=== PATIENT | male | born 1970 | race Caucasian/White ===

== ENCOUNTER 2017-08-26 23:13 | Emergency (ER) | payer OTHER ==
[~2017-08-26 23:13] MED LIST: NAPROSYN500 M1 PO; NORCO 5-325 TA1 EACH PO
--- NOTE | 2017-08-26 23:30 | ED GI/GU/ABDOMINAL COMPLAINT ---
History of Present Illness General Chief Complaint: Nausea, Vomiting, Diarrhea Stated Complaint: NVD Source: patient Exam Limitations: no limitations Vital Signs & Intake/Output Vital Signs & Intake/Output Vital Signs Date Time Temp Pulse Resp B/P B/P Pulse O2 O2 Flow FiO2 Mean Ox Delivery Rate 08/27 0103 97.3 83 20 155/63 96 08/26 2330 98.2 71 22 145/82 98 ED Intake and Output 08/27 0000 08/26 1200 Intake Total Output Total Balance Patient 300 lb Weight Allergies Coded Allergies: No Known Drug Allergies (12/02/15) Reconcile Medications Omeprazole Magnesium (Prilosec Otc) 20 MG TABLET.DR 1 TAB PO DAILY stomach burning Ondansetron (Zofran Odt) 4 MG TAB.RAPDIS 1 TAB SL TID PRN nausea Triage Note: PER PT VOMITING AND NAUSEA AND BROWN X 2 HRS UNSURE IF FEVER BUT FEEL LIKE IT Triage Nurses Notes Reviewed? yes Onset: Gradual Duration: day(s): Timing: recent history Quality/Severity: cramping, vomiting Location: epigastric, generalized abdomen, right lower quadrant Radiation: no radiation Activities at Onset: none Prior Abdominal Problems: none Modifying Factors: Worsens With: vomiting. Associated Symptoms: abdominal pain, nausea/vomiting HPI: 46 yo gentleman in prior good health presents with abdominal pain and nausea that began a few hours ago. He also notes a diffuse headache, dizziness, "like I'm going to pass out." He has no diarrhea, chest pain, shortness of breath. He does not recall ingesting any suspicious foods. He is otherwise well. Past History Medical History Any Pertinent Medical History? see below for history Musculoskeletal: FLESH EATING BACTERIA Psychiatric: anxiety Surgical History Surgical History: right leg Psychosocial History What is your primary language Montenegrin Family History Hx Contributory? No Review of Systems Review of Systems Constitutional: Reports: no symptoms. EENTM: Reports: no symptoms. Respiratory: Reports: no symptoms. Cardiovascular: Reports: no symptoms. GI: Reports: no symptoms. Genitourinary: Reports: no symptoms. Musculoskeletal: Reports: no symptoms. Skin: Reports: no symptoms. Neurological/Psychological: Reports: no symptoms. Hematologic/Endocrine: Reports: no symptoms. Immunologic/Allergic: Reports: no symptoms. All Other Systems: Reviewed and Negative Physical Exam Physical Exam General Appearance: well developed/nourished, moderate distress Head: atraumatic, normal appearance Eyes: Bilateral: normal appearance. Ears, Nose, Throat, Mouth: hearing grossly normal, dry mucosa Neck: normal inspection, supple, full range of motion, normal alignment Respiratory: normal breath sounds, chest non-tender, no respiratory distress, quiet respiration, lungs clear Cardiovascular: regular rate/rhythm Gastrointestinal: normal bowel sounds, soft, tenderness in mid epigastrum and luq, rlq, no interiano's sign, no rebound. Back: normal inspection, normal range of motion Extremities: normal range of motion Neurologic/Psych: no motor/sensory deficits, awake, alert, oriented x 3 Skin: intact, normal color, warm/dry Core Measures ACS in differential dx? No Sepsis Present: No Sepsis Focused Exam Completed? No Progress Differential Diagnosis: appendicitis, bowel obstruction, cholecystitis, diverticulitis, gastritis, hepatitis, pancreatitis Plan of Care: Orders Procedure Date/time Status ETHANOL 08/26 234 Complete LIPASE 08/26 2318 Complete HEPATIC FUNCTION PANEL 08/26 2318 Complete CBC WITHOUT DIFFERENTIAL 08/26 2318 Complete BASIC METABOLIC PANEL 08/26 2318 Complete AMYLASE 08/26 2318 Complete EKG 08/26 2318 Active Laboratory Tests 08/26/17 2345: Anion Gap 13, Estimated GFR > 60, BUN/Creatinine Ratio 17.3, Glucose 125 H, Calcium 9.4, Total Bilirubin 0.5, Direct Bilirubin 0.4, AST 27, ALT 44, Alkaline Phosphatase 91, Total Protein 7.1, Albumin 4.4, Amylase 53, Lipase 82, CBC w Diff NO MAN DIFF REQ, RBC 5.48, MCV 86.9, MCH 30.3, MCHC 34.8, RDW 13.0, MPV 9.4 , Gran % 61.2, Lymphocytes % 27.9, Monocytes % 8.0, Eosinophils % 2.4, Basophils % 0.5, Absolute Granulocytes 5.8, Absolute Lymphocytes 2.7, Absolute Monocytes 0.8 H, Absolute Eosinophils 0.2, Absolute Basophils 0, Serum Alcohol < 10.0 08/26/17 2344: Serum Alcohol Cancelled Diagnostic Imaging: Viewed by Me: CT Scan. Discussed w/RAD: CT Scan. Radiology Impression: PATIENT: ISREAL ARAUJO PRESENT AGE: 46 PATIENT ACCOUNT NO: [id number] : 69 LOCATION: [facility] ORDERING PHYSICIAN: Onur Diehl MD SERVICE DATE: 08/26/172093 EXAM TYPE: CAT - CT ABD & PELVIS W/O IV CONTRAS EXAMINATION: CT ABDOMEN AND PELVIS WITHOUT CONTRAST CLINICAL INFORMATION: Abdominal pain, intractable vomiting COMPARISON: None TECHNIQUE: Multidetector volumetric imaging was performed from the superior aspect of the liver through the pubic symphysis. Sagittal and coronal reformatted images were obtained on the technologist's workstation. DLP: 1382.84 mGy-cm FINDINGS: LUNG BASES: The visualized lung bases are unremarkable. LIVER, GALLBLADDER, AND BILIARY TREE: The liver is normal in size, shape, and attenuation. No focal hepatic lesion or biliary ductal dilatation is present. The gallbladder is unremarkable with no evidence of radiopaque gallstones, gallbladder wall thickening, or obvious pericholecystic inflammatory changes. PANCREAS: Unremarkable. SPLEEN: Unremarkable. ADRENAL GLANDS: Unremarkable. KIDNEYS AND URETERS: The kidneys are normal in size, shape , and attenuation. There is a right upper pole renal cyst which is suspected to be septated; in the axial plane this measures up to approximately 6.3 x 4.0 cm. No hydronephrosis, hydroureter, or calculi seen. No perinephric stranding. BLADDER: Unremarkable. GASTROINTESTINAL TRACT: The small and large bowel are unremarkable. The appendix is unremarkable. No free fluid or free air is seen. ABDOMINAL WALL: No significant hernia is appreciated. LYMPH NODES: Normal. VASCULAR: Unremarkable. PELVIC VISCERA: Unremarkable. OSSEOUS STRUCTURES: Endplate osteophytes are noted in the lower thoracic spine. There is partial visualization of suspected heterotopic ossification along the musculature of the lateral upper right thigh, which could reflect sequelae of old injury. IMPRESSION: No acute findings identified in the abdomen/pelvis. DICTATED BY: Baljit Lozano MD DATE/TIME DICTATED:08/27/1715 INSULATION [employer]OL[employer] OPERATOR:RISHABH DATE/TIME TRANSCRIBED:08/27/1715 CONFIDENTIAL, DO NOT COPY WITHOUT APPROPRIATE AUTHORIZATION. <Electronically signed in Other Vendor System> SIGNED BY: Baljit Lozano MD 08/27/1725 CXR Impression: PATIENT: ISREAL ARAUJO PRESENT AGE: 46 PATIENT ACCOUNT NO: [id number] : 69 LOCATION: [facility] ORDERING PHYSICIAN: Onur Diehl MD SERVICE DATE: 08/26/179533 EXAM TYPE: CAT - CT HEAD WO IV CONTRAST EXAMINATION: CT HEAD WITHOUT CONTRAST CLINICAL INFORMATION: Headache COMPARISON: None TECHNIQUE: Contiguous axial imaging was performed from the skull base to vertex without intravenous administration of contrast. DLP: 690.83 mGy-cm FINDINGS: There is no evidence of acute intracranial hemorrhage or territorial infarction. No abnormal mass effect or midline shift is seen. Field to white matter differentiation is well preserved. No extra-axial fluid collections are identified. The ventricles are normal in size. There is no abnormal attenuation within the brain parenchyma. The osseous structures and soft tissues are normal. There is minimal mucosal thickening of the ethmoid air cells and right maxillary sinus. IMPRESSION: No acute intracranial findings. DICTATED BY: Baljit Lozano MD DATE/TIME DICTATED:13 INSULATION C[employer] OPERATOR:RISHABH DATE/TIME TRANSCRIBED:08/27/1713 CONFIDENTIAL, DO NOT COPY WITHOUT APPROPRIATE AUTHORIZATION. <Electronically signed in Other Vendor System> SIGNED BY: Baljit Lozano MD 08/27/1718 Initial ED EKG: normal axis, normal intervals, normal p-waves, normal QRS complex, normal sinus rhythm Departure Departure Disposition: HOME OR SELF CARE Condition: Stable Clinical Impression Primary Impression: Abdominal pain Secondary Impressions: Headache Referrals: Shari PEACE,Pamela Tolentino (PCP/Family) Departure Forms: Customer Survey General Discharge Information Prescriptions: Current Visit Scripts Ondansetron (Zofran Odt) 1 TAB SL TID PRN nausea #10 TAB Omeprazole Magnesium (Prilosec Otc) 1 TAB PO DAILY #30 TAB Comments 08/27/17, 0:55am... pt feeling better after supportive medications. pt feels comfortable going home. labs/ct scan/ekg benign.
[2017-08-27 00:12] LABS: ABSOLUTE BASOPHIL COUNT 0 /CUMM (0.0-0.2); ABSOLUTE EOSINOPHIL COUNT 0.2 /CUMM (0.0-0.7); ABSOLUTE GRANULOCYTE CT 5.8 /CUMM (1.4-6.5); ABSOLUTE LYMPH COUNT 2.7 /CUMM (1.2-3.4); ABSOLUTE MONOCYTE COUNT 0.8 /CUMM (0.10-0.60); BASOPHIL % 0.5 % (0.0-2.0); EOSINOPHIL % 2.4 % (0-5); GRANULOCYTE % 61.2 % (42.2-75.2); HEMATOCRIT 47.6 % (42-52); MEAN CORPUSCULAR HGB 30.3 PG (27.0-31.0); MEAN CORPUSCULAR HGB CONC 34.8 G/DL (33.0-37.0); MEAN CORPUSCULAR VOLUME 86.9 FL (80.0-94.0); MEAN PLATELET VOLUME 9.4 FL (7.4-10.4); PLATELET COUNT 296 /CUMM (130-400); RED BLOOD CELL CT 5.48 /CUMM (4.70-6.10); WHITE BLOOD CELL COUNT 9.5 /CUMM (4.8-10.8)
--- NOTE | 2017-08-27 00:19 | CT SCAN REPORT ---
EXAMINATION: CT HEAD WITHOUT CONTRAST CLINICAL INFORMATION: Headache COMPARISON: None TECHNIQUE: Contiguous axial imaging was performed from the skull base to vertex without intravenous administration of contrast. DLP: 690.83 mGy-cm FINDINGS: There is no evidence of acute intracranial hemorrhage or territorial infarction. No abnormal mass effect or midline shift is seen. Field to white matter differentiation is well preserved. No extra-axial fluid collections are identified. The ventricles are normal in size. There is no abnormal attenuation within the brain parenchyma. The osseous structures and soft tissues are normal. There is minimal mucosal thickening of the ethmoid air cells and right maxillary sinus. IMPRESSION: No acute intracranial findings.
--- NOTE | 2017-08-27 00:26 | CT SCAN REPORT ---
EXAMINATION: CT ABDOMEN AND PELVIS WITHOUT CONTRAST CLINICAL INFORMATION: Abdominal pain, intractable vomiting COMPARISON: None TECHNIQUE: Multidetector volumetric imaging was performed from the superior aspect of the liver through the pubic symphysis. Sagittal and coronal reformatted images were obtained on the technologist's workstation. DLP: 1382.84 mGy-cm FINDINGS: LUNG BASES: The visualized lung bases are unremarkable. LIVER, GALLBLADDER, AND BILIARY TREE: The liver is normal in size, shape, and attenuation. No focal hepatic lesion or biliary ductal dilatation is present. The gallbladder is unremarkable with no evidence of radiopaque gallstones, gallbladder wall thickening, or obvious pericholecystic inflammatory changes. PANCREAS: Unremarkable. SPLEEN: Unremarkable. ADRENAL GLANDS: Unremarkable. KIDNEYS AND URETERS: The kidneys are normal in size, shape, and attenuation. There is a right upper pole renal cyst which is suspected to be septated; in the axial plane this measures up to approximately 6.3 x 4.0 cm. No hydronephrosis, hydroureter, or calculi seen. No perinephric stranding. BLADDER: Unremarkable. GASTROINTESTINAL TRACT: The small and large bowel are unremarkable. The appendix is unremarkable. No free fluid or free air is seen. ABDOMINAL WALL: No significant hernia is appreciated. LYMPH NODES: Normal. VASCULAR: Unremarkable. PELVIC VISCERA: Unremarkable. OSSEOUS STRUCTURES: Endplate osteophytes are noted in the lower thoracic spine. There is partial visualization of suspected heterotopic ossification along the musculature of the lateral upper right thigh, which could reflect sequelae of old injury. IMPRESSION: No acute findings identified in the abdomen/pelvis.
[2017-08-27] MEDS ORDERED: ZOFRAN ODT4 M1 SL (00:56)
[2017-08-27] MEDS ORDERED: PRILOSEC OTC20 M1 PO (00:56)
[2017-08-27 01:03] VITALS: BP 155/63
== END 2017-08-27 01:08 ==
LOC: ERH 23:13
PROVIDERS: Pediatrics
DX: R51 Headache (principal); R10.84 Generalized abdominal pain
CPT/HCPCS: 74176; 93005; 93010; 96361; 96374; 96375; G0480; J0131; J2405